=== PATIENT | male | born 1965 | race Caucasian/White ===

== ENCOUNTER 2020-03-07 15:05 | Outpatient (REF) | payer OTHER, SELFPAY | END 2020-03-07 15:06 | disposition home or self-care (01) | LOC: HO.LAB 15:05 | PROVIDERS: Visit Provider Internal Medicine | DX: Z20.828 Contact with and (suspected) exposure to other viral communicable diseases (principal) | CPT/HCPCS: C9803; U0003 ==

== ENCOUNTER 2020-11-23 07:10 | Outpatient (REF) | payer OTHER, SELFPAY ==
[2020-11-23 11:50] LABS: Appearance Urine CLEAR; Color Urine YELLOW; Glucose Urine UA NEG (NEG); Leukocyte Esterase Urine NEG (NEG); Nitrite Urine NEG (NEG); PH 5.5 (5.0-8.0); Specific Gravity - Urine >= 1.030 (1.005-1.025); Urine Blood NEG (NEG); Urine Ketones NEG (NEG); Urine Protein NEG (NEG-TRACE)
[2020-11-23 12:12] LABS: TSH reflex Free T4 1.45 uIU/mL (0.32-4.0)
[2020-11-23 12:32] LABS: Alanine Aminotransferase 56 U/L (0-40); Albumin Level 4.5 g/dL (3.5-5.0); Alkaline Phosphatase 46 U/L (39-117); Anion Gap 11 (12-20); Aspartate Amino Transferase 26 U/L (5-37); Bilirubin Total 0.9 mg/dL (0.0-1.0); Blood Urea Nitrogen 15 mg/dL (9-16); Calcium 9.6 mg/dL (8.4-10.2); Carbon Dioxide 28 mmol/L (22-29); Chloride 104 mmol/L (96-108); Cholesterol 190 mg/dL; Estimated Glomerular Filt Rate 59; Glucose Fasting 98 mg/dL (60-99); HDL Cholesterol 43 mg/dL; LDL Cholesterol Calculated 109 mg/dl; Potassium 4.4 mmol/L (3.3-5.1); Sodium 139 mmol/L (135-145); Total Protein 7.2 g/dL (6.5-8.0); Triglycerides 192 mg/dL
[2020-11-23 13:04] LABS: Prostate Specific Antigen Scr 1.32 ng/mL (<0.05-4.0)
== END 2020-11-23 07:11 | disposition home or self-care (01) ==
LOC: HO.WFDLDS 07:10
PROVIDERS: PCP Internal Medicine; Visit Provider Family Medicine
DX: Z00.00 Encounter for general adult medical examination without abnormal findings (principal); Z12.5 Encounter for screening for malignant neoplasm of prostate
CPT/HCPCS: 36415; 80053; 80061; 81003; 84153; 84443

== ENCOUNTER 2022-02-19 07:07 | Outpatient (REF) | payer OTHER, SELFPAY ==
[2022-02-19 07:45] LABS: Appearance Urine Clear; Color Urine Yellow; Glucose Urine UA Negative (Negative); Leukocyte Esterase Urine Negative (Negative); Nitrite Urine Negative (Negative); Specific Gravity - Urine 1.025 (1.005-1.025); Urine Blood Negative (Negative); Urine Ketones Trace mg/dL (Negative); Urine Protein Negative (Neg-Trace)
[2022-02-19 08:01] LABS: Creatinine Urine 211.84 mg/dL; Microalbum/Creatinine Ratio Ur 5.1 ug/mg cr
[2022-02-19 08:30] LABS: Alanine Aminotransferase 49 U/L (0-40); Albumin Level 4.2 g/dL (3.5-5.0); Alkaline Phosphatase 52 U/L (39-117); Anion Gap 12 (12-20); Aspartate Amino Transferase 25 U/L (5-37); Bilirubin Total 0.4 mg/dL (0.0-1.0); Blood Urea Nitrogen 17 mg/dL (9-16); Calcium 9.1 mg/dL (8.4-10.2); Carbon Dioxide 26 mmol/L (22-29); Chloride 106 mmol/L (96-108); Cholesterol 218 mg/dL; Estimated Glomerular Filt Rate > 60; Glucose Fasting 104 mg/dL (60-99); HDL Cholesterol 29 mg/dL; Potassium 4.8 mmol/L (3.3-5.1); Prostate Specific Antigen Scr 1.42 ng/mL (<0.05-4.0); Sodium 139 mmol/L (135-145); TSH reflex Free T4 1.57 uIU/mL (0.32-4.0); Total Protein 6.8 g/dL (6.5-8.0); Triglycerides 412 mg/dL
== END 2022-02-19 07:08 | disposition home or self-care (01) ==
LOC: HO.LAB 07:07
PROVIDERS: PCP Internal Medicine; Visit Provider Family Medicine
DX: Z00.00 Encounter for general adult medical examination without abnormal findings (principal); Z12.5 Encounter for screening for malignant neoplasm of prostate; I10 Essential (primary) hypertension
CPT/HCPCS: 36415; 80053; 80061; 81003; 82043; 84153; 84443

== ENCOUNTER → 2022-05-20 08:09 | Outpatient (BNVA) | payer OTHER, SELFPAY | PROVIDERS: PCP Internal Medicine; Visit Provider Nurse Practitioner Family | DX: Z13.89 Encounter for screening for other disorder (principal) ==

== ENCOUNTER 2022-05-23 08:59 | Outpatient (REF) | payer OTHER, SELFPAY ==
[2022-05-23 12:04] LABS: Alanine Aminotransferase 52 U/L (0-40); Albumin Level 4.4 g/dL (3.5-5.0); Alkaline Phosphatase 42 U/L (39-117); Anion Gap 12 (12-20); Aspartate Amino Transferase 27 U/L (5-37); Bilirubin Total 0.6 mg/dL (0.0-1.0); Blood Urea Nitrogen 20 mg/dL (9-16); Calcium 9.7 mg/dL (8.4-10.2); Carbon Dioxide 27 mmol/L (22-29); Chloride 105 mmol/L (96-108); Cholesterol 188 mg/dL; Estimated Glomerular Filt Rate 58; Glucose Random 93 mg/dL (60-115); HDL Cholesterol 44 mg/dL; LDL Cholesterol Calculated 121 mg/dl; Potassium 5.1 mmol/L (3.3-5.1); Sodium 139 mmol/L (135-145); Total Protein 6.9 g/dL (6.5-8.0); Triglycerides 116 mg/dL
[2022-05-25 18:43] LABS: LDL Cholesterol Direct 120 mg/dL (<100)
== END 2022-05-23 09:00 | disposition home or self-care (01) ==
LOC: HO.WFDLDS 08:59
PROVIDERS: Visit Provider Family Medicine
DX: Z00.00 Encounter for general adult medical examination without abnormal findings (principal); E78.5 Hyperlipidemia, unspecified
CPT/HCPCS: 36415; 80053; 80061; 83721

== ENCOUNTER → 2022-06-11 08:58 | Outpatient (REF) | payer OTHER, SELFPAY | LOC: HO.SL 08:58 | PROVIDERS: PCP Family Medicine; Visit Provider Nurse Practitioner Family | DX: R06.83 Snoring (principal); G47.30 Sleep apnea, unspecified | CPT/HCPCS: 95806 ==

== ENCOUNTER 2022-07-23 07:59 | Outpatient (REF) | payer OTHER, SELFPAY ==
--- NOTE | ~2022-07-23 | US_ITS ---
EXAMINATION: US ABDOMEN LIMITED WITH LIVER ELASTOGRAPHY CLINICAL INFORMATION: Elevation of liver transaminase levels. COMPARISON: None available. TECHNIQUE: Real-time imaging of the abdominal viscera. Noninvasive ultrasound liver fibrosis assessment is performed using Saad ElastPQ point quantification shear wave elastography (2D-SWE) with a C5-2 MHz transducer. Multiple elastography samples are obtained. FINDINGS: PANCREAS: Normal. The visualized pancreatic head and body are normal in appearance. The remainder of the pancreas is obscured from visualization by the overlying bowel gas. LIVER: The liver demonstrates normal size, contour and diffuse increased echogenicity. No focal lesion or intrahepatic biliary duct dilatation. The right lobe measures 17.2 cm in length. The left lobe measures 10.9 cm in length. Portal flow is hepatopedal. Shear wave liver elastography median stiffness is 1.40 m/s (reference: normal median stiffness is 1.3 m/s or less). IQR/median stiffness to assess sampling precision is 0.06 (reference: good quality data set is IQR/median stiffness of 0.15 or less). GALLBLADDER: Gallbladder wall thickness is 0.2 cm. The gallbladder is physiologically distended without evidence of stones, sludge, polyps, wall thickening or pericholecystic fluid. COMMON BILE DUCT: Normal in caliber measuring 0.3 cm in diameter. RIGHT KIDNEY: Normal. No hydronephrosis. No renal calculi or focal parenchymal lesions. The kidney measures 11.6 cm in maximum dimension. FREE FLUID: None. US/US abdomen golden w elastography IMPRESSION: 1. Mild hepatic steatosis without focal lesion. 2. Liver elastography: Median liver stiffness measures 1.40 m/s corresponding to cACLD (ruled out). REFERENCE: Society of Radiologists in Ultrasound Liver Stiffness Thresholds (2020): LIVER STIFFNESS THRESHOLDS: *Liver Stiffness equal or less than 1.3 m/s: High probability of being normal. *Liver Stiffness less than 1.7 m/s: In the absence of other known clinical signs, rules out compensated advanced chronic liver disease. *Liver Stiffness 1.7-2.1 m/s: Suggestive of compensated advanced chronic liver disease but need further test for confirmation. *Liver Stiffness over 2.1 m/s: Rules in compensated advanced chronic liver disease. *Liver Stiffness over 2.4 m/s: Suggestive of clinically significant portal hypertension. QUALITY OF DATA SET: *IQR/Median value equal or less than 0.15 implies a quality data set. *IQR/Median value over 0.15 implies a poor quality data set. SIGNIFICANT CHANGE FROM PRIOR EXAM: Significant change if liver stiffness measurement is 10% or greater from prior exam. OTHER CONSIDERATIONS: The stage of liver fibrosis may be overestimated in the setting of acute hepatitis, liver inflammation, elevated liver function tests, hepatic vascular congestion, obstructive cholestasis, non-fasting state, and infiltrative diseases such as amyloidosis and lymphoma. In some patients with NAFLD, the liver stiffness thresholds for compensated advanced chronic liver disease may be lower. In causes other than viral hepatitis and NAFLD, liver stiffness thresholds are not well established.
== END 2022-07-23 08:00 | disposition home or self-care (01) ==
LOC: HO.US 07:59
PROVIDERS: PCP Internal Medicine; Visit Provider Family Medicine
DX: R74.01 Elevation of levels of liver transaminase levels (principal)
CPT/HCPCS: 76705; 76981

== ENCOUNTER 2022-11-11 14:36 | Outpatient (AMB) | payer OTHER, SELFPAY ==
--- NOTE | 2022-11-11 14:42 | MHC.PC.OV ---
Vital Signs 11/11/22 14:43 Height 6 ft 1 in Weight 209 lb BMI 27.6 BP 118/64 Blood Pressure Location Rt brachial Position Sitting Respiration 12 Pulse 70 Pulse Source Pulse Oximeter Temp 97.9 F Temp Source Temporal Artery Scan Pulse Oximetry (%) 99 Oxygen Delivery Method Room Air Intake Visit Reasons: sore throat, cough, chills Intake Note: Patient states that symptoms started over a week ago. Patient states that thursday he was having a hard time getting out of bed and still has a persistent cough. 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 Rapid strep negative today. He reports symptoms x1 week. [facility] Medical History No pertinent past medical history Surgical History No pertinent past surgical history Family History Father Paranoia Depression Parkinson disease Mother Alzheimers disease Sister In good health Social History Housing: House Patient Tobacco Use Status: Never used Tobacco e-Cigarette/Vaping Use: Never Used service: No Current occupational status: employed Current occupation: Banker Current occupational exposures/hazards: No Cognitive needs: No Hearing needs: No Vision needs: No Questionnaire CANDICE-7 AMB Questionnaire CANDICE-7 Date CANDICE - 7 assessed: 02/21/22 Source: Developed by Drs. Lucho Steel, Geetha Elizalde, Keon Johnson and colleagues, with an educational sravan from [employer]. Review of Systems Const Reports chills, Denies fatigue, Denies headache(s) and Denies weakness ENT Denies dizziness, Denies headache(s) and Reports sore throat Card Denies chest pain, Denies lightheadedness, Denies dyspnea and Denies other (Palpitations) Resp Reports cough, Denies dyspnea and Denies wheezing Musc Denies numbness and Denies tingling Neuro Denies dizziness, Denies headache(s), Denies numbness, Denies tingling, Denies paresthesias and Denies weakness Psych Denies anxiety and Denies depression Endo Denies fatigue Aller/Immun Denies wheezing Physical exam (Primary Care) Vital Signs: Last Vital Signs Temp 97.9 F 11/11/22 14:43 Pulse 70 11/11/22 14:43 Resp 12 11/11/22 14:43 BP 118/64 11/11/22 14:43 Pulse Ox 99 11/11/22 14:43 Oxygen Delivery Method Room Air 11/11/22 14:43 BMI result Body Mass Index 27.6 Tobacco/Smoking Status: Tobacco use Status Tobacco use date assessed 06/27/22 11/11/22 14:51 Patient Tobacco Use Status Never used Tobacco 11/11/22 14:51 e-Cigarette/Vaping Use Never Used 11/11/22 14:51 Const General: no acute distress and well developed Nutritional Appearance: well nourished Orientation/consciousness: patient oriented x3 HENMT Head: Yes normocephalic and Yes atraumatic Eyes General: appearance normal, both eyes and all related structures Pupils: Equal, round and reactive pupils present EOM: EOMs intact bilaterally Resp Other: Mildly coarse breath sounds Effort & Inspection: normal respiratory effort Auscultation: clear to auscultation bilaterally Cardio Rate: regular rate Rhythm: regular rhythm Heart sounds: S1 normal heart sound present, S2 normal heart sound present, no gallops, no murmurs and no rubs Neuro General: patient oriented x3 and gait normal Cranial nerves: Yes Equal, round and reactive pupils present Psych Affect: normal affect Results AMB Rapid Strep AMB Rapid Strep Negative Last Edit by Samantha Martínez CMA on 11/11/22 15:12 Results Reviewed Results Reviewed: Laboratory Last Values Strep Scn [facility] Negative 11/11/22 14:53 Assessment and Plan Assessment & Plan (1) Sore throat: Code(s): J02.9 - Acute pharyngitis, unspecified Plan: Negative for strep Likely secondary to a viral illness-see below (2) Viral illness: Code(s): B34.9 - Viral infection, unspecified Plan: Viral illness There is no antibiotic medication for viruses. They must run their course. Most average 5-7 days but 7-10 days is not uncommon and up to 14 days is still possible. A cough is often the last symptom to resolve and this can last for weeks in some cases. Rest Hydrate well - Drink plenty of fluids. Especially water. Tylenol or ibuprofen for muscle aches, headache, fever/discomfort Can use [id number] medications for cough such as Delsym or DayQuil. Prescription cough medicines have been shown to be no better. Checking nasal swab for COVID/flu/RSV Orders: Orders SARS-CoV2/FLU/RSV Today J02.9 - Acute pharyngitis, unspecified, Z20.822 - Contact with and (suspected) exposure to COVID-19 AMB Rapid Strep Screen Today J02.9 - Acute pharyngitis, unspecified Coding Level of Care Code Est Pt Level 3 (38852) Diagnoses Sore throat J02.9 Viral illness B34.9
[2022-11-11 14:43] VITALS: BP 118/64; PULSE 70; RESP 12; TEMP 36.6; O2SAT 99; BMI 27.6
== END 2022-11-11 15:36 | disposition home or self-care (01) ==
PROVIDERS: PCP Family Medicine; Visit Provider Family Medicine
DX: J02.9 Acute pharyngitis, unspecified (principal); B34.9 Viral infection, unspecified
CPT/HCPCS: 87880; 99213

== ENCOUNTER 2022-11-11 15:25 | Outpatient (REF) | payer OTHER, SELFPAY | END 2022-11-11 15:26 | disposition home or self-care (01) | LOC: HO.LAB 15:25 | PROVIDERS: Visit Provider Family Medicine | DX: Z13.89 Encounter for screening for other disorder (principal) ==

== ENCOUNTER 2022-11-19 14:11 | Outpatient (REF) | payer OTHER, SELFPAY ==
[2022-11-19 14:56] LABS: Influenza A PCR NEGATIVE (Negative); Influenza B PCR NEGATIVE (Negative); Resp Syncy Virus RNA Qual PCR NEGATIVE (Negative); SARS COV2 PCR INHOUSE NEGATIVE (Negative)
== END 2022-11-19 14:12 | disposition home or self-care (01) ==
LOC: HO.LNP 14:11
PROVIDERS: Visit Provider Family Medicine
DX: Z20.822 Contact with and (suspected) exposure to COVID-19 (principal); J02.9 Acute pharyngitis, unspecified
CPT/HCPCS: 0241U

== ENCOUNTER 2022-11-24 07:05 | Outpatient (REF) | payer OTHER, SELFPAY ==
[2022-11-24 07:33] LABS: Alanine Aminotransferase 79 U/L (0-40); Albumin Level 4.1 g/dL (3.5-5.0); Alkaline Phosphatase 40 U/L (39-117); Anion Gap 11 (12-20); Aspartate Amino Transferase 32 U/L (5-37); Bilirubin Total 0.4 mg/dL (0.0-1.0); Blood Urea Nitrogen 19 mg/dL (9-16); Calcium 9.5 mg/dL (8.4-10.2); Carbon Dioxide 26 mmol/L (22-29); Chloride 108 mmol/L (96-108); Cholesterol 185 mg/dL (<200); Estimated Glomerular Filt Rate > 60; Glucose Fasting 108 mg/dL (60-99); HDL Cholesterol 40 mg/dL (>40); LDL Cholesterol Calculated 97 mg/dL (<100); Potassium 4.4 mmol/L (3.3-5.1); Sodium 141 mmol/L (135-145); Triglycerides 242 mg/dL (<150)
== END 2022-11-24 07:06 | disposition home or self-care (01) ==
LOC: HO.LAB 07:05
PROVIDERS: PCP Family Medicine; Visit Provider Family Medicine
DX: Z00.00 Encounter for general adult medical examination without abnormal findings (principal); R74.01 Elevation of levels of liver transaminase levels; E78.5 Hyperlipidemia, unspecified
CPT/HCPCS: 36415; 80053; 80061

== ENCOUNTER 2022-11-25 08:30 | Outpatient (AMB) | payer OTHER, SELFPAY ==
--- NOTE | 2022-11-25 08:34 | MHC.PC.OV ---
Vital Signs 11/25/22 08:41 Height 6 ft 1 in Weight 212 lb 4 oz BMI 28.0 BP 122/60 Blood Pressure Location Rt brachial Position Sitting Respiration 13 Pulse 88 Pulse Source Pulse Oximeter Temp 97.9 F Temp Source Temporal Artery Scan Pulse Oximetry (%) 97 Oxygen Delivery Method Room Air Intake Visit Reasons: 3 month f/u Intake Note: Patient reports he is still experiencing a cough since being sick recently. Patient states other than the cough, he is feeling much better. Patient reports he was able to get his labs drawn 11/24/22. 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 He reports an ongoing cough. Labs were drawn 11/24/22. Reviewed labs with pt. Elevated fasting glucose of 108 and last A1c 08/22/22 5.2%. Elevated ALT of 79. Triglycerides 242. TC 185. LDL 97. HDL 40. He is on simvastatin 40mg qpm. [facility] Medical History No pertinent past medical history Surgical History No pertinent past surgical history Family History Father Paranoia Depression Parkinson disease Mother Alzheimers disease Sister In good health Social History Housing: House Patient Tobacco Use Status: Never used Tobacco e-Cigarette/Vaping Use: Never Used service: No Current occupational status: employed Current occupation: Banker Current occupational exposures/hazards: No Cognitive needs: No Hearing needs: No Vision needs: No Questionnaire CANDICE-7 AMB Questionnaire CANDICE-7 Date CANDICE - 7 assessed: 02/21/22 Source: Developed by Drs. Lucho Steel, Geetha Elizalde, Keon Johnson and colleagues, with an educational srvaan from [employer]. Review of Systems Const Denies chills, Denies fatigue, Denies fever(s), Denies headache(s) and Denies weakness ENT Denies dizziness and Denies headache(s) Card Denies dyspnea Resp Reports cough, Denies dyspnea and Denies wheezing Musc Denies numbness and Denies tingling Neuro Denies dizziness, Denies headache(s), Denies numbness, Denies tingling and Denies weakness Psych Denies anxiety and Denies depression Endo Denies fatigue Aller/Immun Denies wheezing Physical exam (Primary Care) Vital Signs: Last Vital Signs Temp 97.9 F 11/25/22 08:41 Pulse 88 11/25/22 08:41 Resp 13 11/25/22 08:41 BP 122/60 11/25/22 08:41 Pulse Ox 97 11/25/22 08:41 Oxygen Delivery Method Room Air 11/25/22 08:41 BMI result Body Mass Index 28.0 Tobacco/Smoking Status: Tobacco use Status Tobacco use date assessed 06/27/22 11/25/22 08:35 Patient Tobacco Use Status Never used Tobacco 11/25/22 08:35 e-Cigarette/Vaping Use Never Used 11/25/22 08:35 Const General: well developed; No acute distress Nutritional Appearance: well nourished Orientation/consciousness: patient oriented x3 HENMT Head: Yes normocephalic and Yes atraumatic Eyes General: appearance normal, both eyes and all related structures Pupils: Equal, round and reactive pupils present EOM: EOMs intact bilaterally Resp Other: Coarse breath sounds at the bases Effort & Inspection: normal respiratory effort Auscultation: clear to auscultation bilaterally Cardio Rate: regular rate Rhythm: regular rhythm Heart sounds: S1 normal heart sound present, S2 normal heart sound present, no gallops, no murmurs and no rubs Neuro General: patient oriented x3 and gait normal Cranial nerves: Yes Equal, round and reactive pupils present Psych Affect: normal affect Assessment and Plan Assessment & Plan (1) Hyperlipidemia: Code(s): E78.5 - Hyperlipidemia, unspecified Plan: Mixed hyperlipidemia Triglycerides were over 400 and he started fenofibrate. This had brought triglycerides down to 116 but this is back up to 242. TC and LDL are controlled on simvastatin HDL had been low but more recently is around 40. Continue fenofibrate and simvastatin (2) Hypertension: Code(s): I10 - Essential (primary) hypertension Plan: Blood pressure is controlled. Goal is less than 140/90 Continue lisinopril (3) Elevated ALT measurement: Code(s): R74.01 - Elevation of levels of liver transaminase levels Plan: ALT was mildly elevated at 52 Liver ultrasound showed hepatic steatosis Encouraged lifestyle changes including weight loss. He had lost about 10 lb but gained 3 back. ALT has climbed to 79. Continue to work at weight loss (4) Cough: Code(s): R05.9 - Cough, unspecified Plan: Ongoing cough which is improving. Likely a pulse viral tussive syndrome though possible allergic or irritant cause or possible lingering bronchitis though this is less likely. Lastly, possible lisinopril cough is though description of the cough and the fact that is improving make this unlikely. He will let me know if this does not continue to improve. Can try little Zyrtec or Benadryl Orders: Orders Comprehensive [place]. Panel Fast Today Z00.00 - Encounter for general adult medical examination without abnormal findings Lipid Panel Today Z00.00 - Encounter for general adult medical examination without abnormal findings Microalbumin, Random (w Creat) Today I10 - Essential (primary) hypertension TSH reflex Free T4 Today Z00.00 - Encounter for general adult medical examination without abnormal findings Prostate Specific Antigen Scr Today Z12.5 - Encounter for screening for malignant neoplasm of prostate UA and rflx microscopic Today Z00.00 - Encounter for general adult medical examination without abnormal findings Coding Level of Care Code Est Pt Level 4 (58632) Diagnoses Hyperlipidemia E78.5 Hypertension I10 Elevated ALT measurement R74.01 Cough R05.9
[2022-11-25 08:41] VITALS: BP 122/60; PULSE 88; RESP 13; TEMP 36.6; O2SAT 97; BMI 28.0
== END 2022-11-25 09:03 | disposition home or self-care (01) ==
PROVIDERS: PCP Family Medicine; Visit Provider Family Medicine
DX: E78.5 Hyperlipidemia, unspecified (principal); I10 Essential (primary) hypertension; R74.01 Elevation of levels of liver transaminase levels; R05.9 Cough, unspecified
CPT/HCPCS: 99214

== ENCOUNTER 2023-08-12 06:54 | Outpatient (REF) | payer BC, OTHER, SELFPAY ==
[2023-08-12 08:13] LABS: Alanine Aminotransferase 71 U/L (0-40); Albumin Level 4.3 g/dL (3.5-5.0); Alkaline Phosphatase 39 U/L (39-117); Anion Gap 10 (12-20); Aspartate Amino Transferase 35 U/L (5-37); Bilirubin Total 0.5 mg/dL (0.0-1.0); Blood Urea Nitrogen 21 mg/dL (9-16); Calcium 9.4 mg/dL (8.4-10.2); Carbon Dioxide 26 mmol/L (22-29); Chloride 107 mmol/L (96-108); Cholesterol 193 mg/dL (<200); Estimated Glomerular Filt Rate 56; Glucose Fasting 98 mg/dL (60-99); HDL Cholesterol 43 mg/dL (>40); LDL Cholesterol Calculated 119 mg/dL (<100); Potassium 4.3 mmol/L (3.3-5.1); Sodium 139 mmol/L (135-145); Total Protein 7.1 g/dL (6.5-8.0); Triglycerides 159 mg/dL (<150)
[2023-08-12 08:20] LABS: Appearance Urine Clear; Color Urine Yellow; Glucose Urine UA Negative (Negative); Leukocyte Esterase Urine Negative (Negative); Nitrite Urine Negative (Negative); PH 5.5 (5.0-9.0); Urine Blood Negative (Negative); Urine Ketones Negative (Negative); Urine Protein Negative (Neg-Trace)
[2023-08-12 08:22] LABS: Prostate Specific Antigen Scr 1.62 ng/mL (<0.05-4.0)
[2023-08-12 08:32] LABS: TSH reflex Free T4 1.65 uIU/mL (0.32-4.0)
[2023-08-12 08:57] LABS: Creatinine Urine 248.94 mg/dL; Microalbum/Creatinine Ratio Ur 5.6 ug/mg cr (<30)
== END 2023-08-12 06:55 | disposition home or self-care (01) ==
LOC: HO.LAB 06:54
PROVIDERS: PCP Family Medicine; Visit Provider Family Medicine
DX: Z00.00 Encounter for general adult medical examination without abnormal findings (principal); Z12.5 Encounter for screening for malignant neoplasm of prostate; I10 Essential (primary) hypertension
CPT/HCPCS: 36415; 80053; 80061; 81003; 82043; 82570; 84153; 84443

== ENCOUNTER 2023-08-13 08:20 | Outpatient (AMB) | payer BC, SELFPAY ==
[2023-08-13 08:30] VITALS: BP 122/60; PULSE 80; RESP 14; TEMP 36.6; O2SAT 97; BMI 28.7
--- NOTE | 2023-08-13 08:30 | A.OFFPC_ITS ---
Vital Signs 08/13/23 08:30 Height 6 ft 1 in Weight 217 lb 6 oz BMI 28.7 BP 122/60 Blood Pressure Location Rt brachial Position Sitting Respiration 14 Pulse 80 Pulse Source Pulse Oximeter Temp 98 F Temp Source Temporal Artery Scan Pulse Oximetry (%) 97 Oxygen Delivery Method Room Air Intake Visit Reasons: CPE, labs, health maintenance Pediatric Ophthalmologist Required: No Accompanied by: Self / Same As Patient Allergies No Known Allergies [No Known Allergies*] Allergy (Verified 08/13/23 08:35) Medication List - Last Reconciled 08/13/23 by Bharat Hermosillo MD fenofibrate nanocrystallized 145 mg PO DAILY 90 days lisinopril 20 mg PO DAILY 90 days simvastatin 40 mg PO QPM Tobacco use date assessed: 08/13/23 Dental Screening Dental Screen Date: 08/13/23 Did you have a dental visit in the last 12 months?: Yes Did you have a dental problem in the last 6 months where you did not have access to dental care?: No Was dental information given to patient?: Patient has dentist HPI CPE, labs, health maintenance HPI Details 58 y/o male presents for a CPE with f/u labs and health maintenance. Labs were drawn 08/12/23. Reviewed labs with pt. Elevated ALT of 71. Triglycerides improved from 242 to 159. LDL 119. HDL 43. He is on simvastatin 40mg. Blood pressure today 122/60. He is on lisinopril 20mg daily. [facility] Medical History No pertinent past medical history Surgical History History of tooth extraction No pertinent past surgical history Family History Father Paranoia Depression Parkinson disease Mother Alzheimers disease Sister In good health Social History Housing: House Patient Tobacco Use Status: Never used Tobacco e-Cigarette/Vaping Use: Never Used service: No Current occupational status: employed Current occupation: Banker Current occupational exposures/hazards: No Cognitive needs: No Hearing needs: No Vision needs: No Questionnaire PHQ-9 Over the last 2 weeks, how often have you been bothered by any of the following problems? 1. Little interest or pleasure in doing things: not at all 2. Feeling down, depressed, or hopeless: not at all 3. Trouble falling or staying asleep, or sleeping too much: not at all 4. Feeling tired or having little energy: not at all 5. Poor appetite or overeating: not at all 6. Feeling bad about yourself - or that you are a failure or have let yourself or your family down: not at all 7. Trouble concentrating on things, such as reading the newspaper or watching television: not at all 8. Moving or speaking so slowly that other people could have noticed. Or the opposite - being so fidgety or restless that you have been moving around a lot more than usual: not at all 9. Thoughts that you would be better off or of hurting yourself in some way: not at all Total score: 0 Depression Screening Interpretation: Negative Depression Screening Done: Yes 72134 - PHQ-9 Billing: Yes Source: Developed by Drs. Lucho Steel, Geetha Elizalde, Keon Johnson and colleagues, with an educational sravan from [employer]. Thrive Questionnaire Date Thrive assessed: 08/13/23 I am a: Patient What is your living situation today?: I have a steady place to live Within the past 12 months, did the food you bought not last and you didn't have the money to get more?: Never true Within the past 12 months, did you worry whether your food would run out before you got money to buy more?: Never true Do you have trouble paying for medicines?: No Do you have trouble getting transportation to medical appointments?: No Do you have trouble paying your heating and electricity bill?: No Do you have trouble taking care of your child, family member or friend?: No Do you have trouble with day-to-day activities such as bathing, preparing meals, shopping, managing finances, etc.?: No Are you currently unemployed and looking for a job?: No Are you interested in more education?: No Please select the resources that you would like help with: None Currently or been in a relationship where the following occur: no concerns reported THRIVE Score: 0 AUDIT C Alcohol Use Questionnaire (AUDIT-C) 1. How often do you have a drink containing alcohol?: Monthly or less 2. How many drinks containing alcohol do you have on a typical day when you are drinking?: 1 or 2 3. How often do you have six or more drinks on one occasion?: Never Total Score: 1 CANDICE-7 AMB Questionnaire CANDICE-7 Date CANDICE - 7 assessed: 08/13/23 Feeling nervous, anxious, or on edge: 0 = Not at all Not being able to stop or control worryin = Not at all Worrying too much about different things: 0 = Not at all Trouble relaxin = Not at all Being so restless that it is hard to sit still: 0 = Not at all Becoming easily annoyed or irritable: 0 = Not at all Feeling afraid as if something awful might happen: 0 = Not at all Total CANDICE-7 score (0-4 normal; 5-9 mild; 10-14 moderate; 15-21 severe): 0 Source: Developed by Drs. Lucho Steel, Geetha Elizalde, Keon Johnson and colleagues, with an educational sravan from [employer]. CANDICE-7 Assessment Billing CANDICE-7 Assessment Tool: CANDICE-7 Assessment 54177 Review of Systems Const Denies chills, Denies fatigue, Denies fever(s), Denies headache(s) and Denies weakness Eyes Denies change in vision ENT Denies dizziness, Denies headache(s), Denies hearing loss, Denies nasal congestion, Denies sinus pain, Denies sinus pressure and Denies sore throat Card Denies chest pain, Denies lightheadedness, Denies dyspnea and Denies other (palpitations) Resp Denies cough, Denies dyspnea and Denies wheezing GI Denies abdominal pain, Denies melena, Denies hematochezia, Denies change in bowel habits, Denies dyspepsia and Denies nausea Denies hematuria and Denies dysuria Musc Denies abnormal gait, Denies myalgias, Denies arthralgias, Denies numbness and Denies tingling Skin/Breast Denies rash, Denies unusual bruising and Denies wounds Neuro Denies abnormal gait, Denies dizziness, Denies headache(s), Denies memory loss, Denies numbness, Denies Sensory deficit (Neuro), Denies tingling and Denies weakness Psych Denies anxiety, Denies depression and Denies memory loss Endo Denies cold intolerance, Denies fatigue, Denies heat intolerance, Denies polydipsia and Denies polyuria Norrsi/Lymph Denies easy bleeding and Denies easy bruising Aller/Immun Denies wheezing Physical exam (Primary Care) Vital Signs: Last Vital Signs Temp 98 F 08/13/23 08:30 Pulse 80 08/13/23 08:30 Resp 14 08/13/23 08:30 BP 122/60 08/13/23 08:30 Pulse Ox 97 08/13/23 08:30 Oxygen Delivery Method Room Air 08/13/23 08:30 BMI result Body Mass Index 28.7 Tobacco/Smoking Status: Tobacco use Status Tobacco use date assessed 08/13/23 08/13/23 08:39 Patient Tobacco Use Status Never used Tobacco 08/13/23 08:39 e-Cigarette/Vaping Use Never Used 08/13/23 08:39 PHQ-9: PHQ-9 Score PHQ-9: Total score 0 08/13/23 08:39 Depression Screening Interpretation: Negative Thrive Assessment: Date of Thrive Assessment Date Thrive assessed 08/13/23 08/13/23 08:39 Currently or been in a relationship where the following occur: no concerns reported Const General: no acute distress, well developed, alert and awake Nutritional Appearance: well nourished Orientation/consciousness: patient oriented x3 HENMT Head: Yes normocephalic and Yes atraumatic Ears: hearing grossly normal bilaterally and TM's normal bilaterally General nose exam: Normal external nose present and Normal nares present Mouth: Normal oral and palatal mucosa present and moist mucous membranes Teeth and gingiva: dentition normal Throat: Yes posterior oropharynx normal Eyes General: appearance normal, both eyes and all related structures Pupils: Equal, round and reactive pupils present and Pupil accommodation reflex normal EOM: EOMs intact bilaterally Neck Neck: Yes normal visual inspection, Yes no lymphadenopathy and Yes trachea midline Thyroid: Thyroid normal Carotids: no bruits Lymphatic: no lymphadenopathy noted Chest Chest palpation & inspection: normal inspection of the chest Resp Effort & Inspection: normal respiratory effort Auscultation: clear to auscultation bilaterally Cardio Rate: regular rate Rhythm: regular rhythm Heart sounds: S1 normal heart sound present, S2 normal heart sound present, no gallops, no murmurs and no rubs Bruits: no abdominal aortic bruits and no carotid bruits GI Palpation (GI): No Abdominal aortic bruit present, Soft to palpation, nontender, No hepatosplenomegaly present and No Rebound tenderness present Auscultation: normal bowel sounds General: Yes no CVA tenderness Back/Spine/Pelvis Back: no CVA tenderness Cervical Spine: cervical ROM normal and No Cervical spine tenderness Thoracic/Lumbar Spine: thoraco-lumbar ROM normal, No pain with thoraco-lumbar ROM, No thoracic spinal tenderness and No lumbar spinal tenderness Skin Lesions: no lesions Rashes: no rashes Trauma: no lacerations or abrasions Wounds: no wounds Nails: normal Neuro General: patient oriented x3 Cranial nerves: Yes Equal, round and reactive pupils present Cognition (Neuro): normal cognition Gait exam (Neuro): Normal gait present Motor exam (neuro): 5/5 motor strength present throughout Sensory Exam: No Sensory deficit (Neuro) Deep tendon reflexes (DTR's): Right patellar reflex intensity grade: 2+ and Left patellar reflex intensity grade: 2+ Extrem General: Yes normal to inspection and No edema Psych Appearance: grossly normal Affect: normal affect Attitude: cooperative Thought process: Normal thought process present Assessment and Plan Assessment & Plan (1) Adult general medical exam: Code(s): Z00.00 - Encounter for general adult medical examination without abnormal findings Plan: 58-year-old?male?presents?for?complete?physical?exam Encouraged?healthy?diet?with?active?lifestyle?and?plenty?of?exercise (2) Hyperlipidemia: Code(s): E78.5 - Hyperlipidemia, unspecified Plan: History?of?hypertriglyceridemia?and?hypercholesterolemia Triglycerides?fairly?well?controlled?on?fenofibrate. LDL?cholesterol?mildly?above?goal?of?less?than?100 He?will?continue ?current?medication?regimen?and?I?recommended?diet?lower?in?saturated?fats?and?c holesterol?and?weight?loss (3) Hypertension: Code(s): I10 - Essential (primary) hypertension Plan: Blood?pressure?is?well?controlled?on?lisinopril.??Goal?is?less?than?140/90 Continue?current?medication?for?now .??Patient?would?like?to?work?on?lifestyle?changes?to?wean?off?or?stop?medicatio n?in?the?future. Will?monitor (4) Screening for colon cancer: Code(s): Z12.11 - Encounter for screening for malignant neoplasm of colon Plan: Patient?says?he?had?a?colonoscopy?9?years?ago?and?was?told?to?follow- up?in?10?years. Up-to-date.??Will?readdress?next?year (5) Screening for prostate cancer: Code(s): Z12.5 - Encounter for screening for malignant neoplasm of prostate Plan: PSA?within?normal?range Will?continue?annual?screening (6) Elevated ALT measurement: Code(s): R74.01 - Elevation of levels of liver transaminase levels Plan: Ultrasound?last?year?showed?mild?fatty?liver?disorder Encouraged?weight?loss Coding Level of Care Code Est Pt Level 3 (18998) Est Pt Prev Care 40-64y(51961) Diagnoses Adult general medical exam Z00.00 Hyperlipidemia E78.5 Hypertension I10 Screening for colon cancer Z12.11 Screening for prostate cancer Z12.5 Elevated ALT measurement R74.01 Additional Codes CANDICE-7 Assessment Billing - CANDICE-7 Assessment Tool: CANDICE-7 Assessment 61425 ([id number])
== END 2023-08-13 09:07 | disposition home or self-care (01) ==
PROVIDERS: PCP Family Medicine; Visit Provider Family Medicine
DX: Z00.00 Encounter for general adult medical examination without abnormal findings (principal); E78.5 Hyperlipidemia, unspecified; I10 Essential (primary) hypertension; Z12.11 Encounter for screening for malignant neoplasm of colon; Z12.5 Encounter for screening for malignant neoplasm of prostate; R74.01 Elevation of levels of liver transaminase levels
CPT/HCPCS: 99396

== ENCOUNTER → 2023-12-09 11:59 | Outpatient (BNVA) | payer BC, SELFPAY | PROVIDERS: PCP Family Medicine; Visit Provider Family Medicine ==

== ENCOUNTER 2024-06-14 11:43 | Outpatient (AMB) | payer BC, SELFPAY ==
--- NOTE | 2024-06-14 12:08 | A.OFFPC_ITS ---
Vital Signs 06/14/24 12:11 Height 6 ft 1 in Weight 219 lb 2 oz BMI 28.9 BP 120/62 Blood Pressure Location Lt brachial Position Sitting Respiration 10 L Pulse 57 Pulse Source Pulse Oximeter Temp 97.6 F Temp Source Oral Pulse Oximetry (%) 97 Oxygen Delivery Method Room Air Intake Visit Reasons: F/U hypertension & chronic condition Intake Note: patient is scheduled for htn and weight management [employer] Required: No Allergies No Known Allergies [No Known Allergies*] Allergy (Verified 06/14/24 12:10) Medication List - Last Reconciled 06/14/24 by Bharat Hermosillo MD fenofibrate nanocrystallized 145 mg PO DAILY 90 days lisinopril 20 mg PO DAILY 90 days simvastatin 40 mg PO QPM Tobacco use date assessed: 08/13/23 Dental Screening Dental Screen Date: 08/13/23 HPI F/U hypertension & chronic condition HPI Details 58 y/o male presents to f/u HTN, chronic conditions. BP today 120/62, 57p. He is on lisinopril 20mg daily. [facility] Medical History No pertinent past medical history Surgical History History of tooth extraction No pertinent past surgical history Family History Father Paranoia Depression Parkinson disease Mother Alzheimers disease Sister In good health Social History Housing: House Patient Tobacco Use Status: Never used Tobacco e-Cigarette/Vaping Use: Never Used service: No Current occupational status: employed Current occupation: Banker Current occupational exposures/hazards: No Cognitive needs: No Hearing needs: No Vision needs: No Questionnaire Thrive Questionnaire Date Thrive assessed: 08/13/23 CANDICE-7 AMB Questionnaire CANDICE-7 Date CANDICE - 7 assessed: 08/13/23 Source: Developed by Drs. Lucho Steel, Geetha Elizalde, Keon Johnson and colleagues, with an educational sravan from [employer]. Physical exam (Primary Care) Vital Signs: Last Vital Signs Temp 97.6 F 06/14/24 12:11 Pulse 57 06/14/24 12:11 Resp 10 L 06/14/24 12:11 BP 120/62 06/14/24 12:11 Pulse Ox 97 06/14/24 12:11 Oxygen Delivery Method Room Air 06/14/24 12:11 BMI result Body Mass Index 28.9 Tobacco/Smoking Status: Tobacco use Status Tobacco use date assessed 08/13/23 06/14/24 12:16 Patient Tobacco Use Status Never used Tobacco 06/14/24 12:16 e-Cigarette/Vaping Use Never Used 06/14/24 12:16 Thrive Assessment: Date of Thrive Assessment Date Thrive assessed 08/13/23 06/14/24 12:16 Coding Level of Care Code Est Pt Level 4 (91172) Diagnoses Hypertension I10 Overweight (BMI 25.0-29.9) E66.3 Hyperlipidemia E78.5 Screening for colon cancer Z12.11 Screening for prostate cancer Z12.5 Assessment & Plan Assessment & Plan (1) Hypertension: Code(s): I10 - Essential (primary) hypertension Category: Medical Plan: Blood?pressure?is?well?controlled.??Goal?is?less?than?140/90 Continue?current?medication Patient?notes?he?would?like?to?be?able?to?discontinue?medication?at?some?point. Recommend?he?work?at?a?10?lb?weight?loss?between?now?and?his?next?visit.??Also?i ncrease?exercise?and?decrease?salt/sodium?in?diet Can?evaluate?at?next?visit?to?see?if?we?can?decrease?or?stop?medication. (2) Overweight (BMI 25.0-29.9): Code(s): E66.3 - Overweight Category: Medical Plan: As?above,?patient?will?work?on?lifestyle?changes (3) Hyperlipidemia: Code(s): E78.5 - Hyperlipidemia, unspecified Category: Medical Plan: He?is?on?simvastatin?and?fenofibrate Will?check?lipids?prior?to?next?visit?and?review?together (4) Screening for colon cancer: Code(s): Z12.11 - Encounter for screening for malignant neoplasm of colon Category: Medical Plan: Patient?had?a?colonoscopy?10?years?ago.??Was?advised?to?follow-up?in?10?years (5) Screening for prostate cancer: Code(s): Z12.5 - Encounter for screening for malignant neoplasm of prostate Category: Medical Plan Patient?notes?that?he?is?due?for?colonoscopy.??Will?make?a ?referral?to?gastroenterology Orders: Orders Microalbumin, Random (w Creat) Today I10 - Essential (primary) hypertension TSH reflex Free T4 Today Z00.00 - Encounter for general adult medical examination without abnormal findings UA CC w/rflx Micro + Cult Today Z00.00 - Encounter for general adult medical examination without abnormal findings Lipid Panel Today E78.5 - Hyperlipidemia, unspecified, Z00.00 - Encounter for general adult medical examination without abnormal findings Comprehensive [place]. Panel Fast Today I10 - Essential (primary) hypertension, Z00.00 - Encounter for general adult medical examination without abnormal findings Prostate Specific Antigen Scr Today Z12.5 - Encounter for screening for malignant neoplasm of prostate Referrals Gastroenterology Referral Z12.11 - Encounter for screening for malignant neoplasm of colon
[2024-06-14 12:11] VITALS: BP 120/62; PULSE 57; RESP 10; TEMP 36.4; O2SAT 97; BMI 28.9
== END 2024-06-14 12:43 | disposition home or self-care (01) ==
PROVIDERS: PCP Family Medicine; Visit Provider Family Medicine
DX: I10 Essential (primary) hypertension (principal); E66.3 Overweight; E78.5 Hyperlipidemia, unspecified; Z12.11 Encounter for screening for malignant neoplasm of colon; Z12.5 Encounter for screening for malignant neoplasm of prostate

== ENCOUNTER → 2024-06-14 11:43 | Outpatient (BNVA) | payer BC, SELFPAY | PROVIDERS: PCP Family Medicine; Visit Provider Family Medicine | DX: Z13.89 Encounter for screening for other disorder (principal) ==

== ENCOUNTER 2024-10-12 06:58 | Outpatient (REF) | payer BC, SELFPAY ==
[2024-10-12 08:20] LABS: Alanine Aminotransferase 99 U/L (0-40); Albumin Level 4.6 g/dL (3.5-5.0); Alkaline Phosphatase 42 U/L (39-117); Anion Gap 12 (12-20); Aspartate Amino Transferase 52 U/L (5-37); Blood Urea Nitrogen 20 mg/dL (9-16); Calcium 9.1 mg/dL (8.4-10.2); Carbon Dioxide 24 mmol/L (22-29); Chloride 108 mmol/L (96-108); Cholesterol 176 mg/dL (<200); Estimated Glomerular Filt Rate 55; HDL Cholesterol 39 mg/dL (>40); Potassium 4.6 mmol/L (3.3-5.1); Sodium 139 mmol/L (135-145); Total Protein 7.0 g/dL (6.5-8.0); Triglycerides 139 mg/dL (<150)
[2024-10-12 08:33] LABS: Appearance Urine Clear; Glucose Urine UA Negative (Negative); PH 5.5 (5.0-9.0); Specific Gravity - Urine 1.020 (1.005-1.025)
[2024-10-12 09:27] LABS: Microalbum/Creatinine Ratio Ur 3.6 ug/mg cr (<30)
== END 2024-10-12 06:59 | disposition home or self-care (01) ==
LOC: HO.LAB 06:58
PROVIDERS: PCP Family Medicine; Visit Provider Family Medicine
DX: Z00.00 Encounter for general adult medical examination without abnormal findings (principal); I10 Essential (primary) hypertension; E78.5 Hyperlipidemia, unspecified; Z12.5 Encounter for screening for malignant neoplasm of prostate
CPT/HCPCS: 36415; 80053; 80061; 81003; 82043; 82570; 84153; 84443

== ENCOUNTER 2024-10-13 10:21 | Outpatient (AMB) | payer BC, SELFPAY ==
--- NOTE | 2024-10-13 10:33 | MHC.PC.OV ---
Vital Signs 10/13/24 10:39 Height 6 ft 1 in Weight 218 lb 6 oz BMI 28.8 BP 118/82 Blood Pressure Location Rt brachial Position Sitting Respiration 11 L Pulse 57 Pulse Source Pulse Oximeter Temp 97.3 F Temp Source Temporal Artery Scan Pulse Oximetry (%) 98 Oxygen Delivery Method Room Air Intake Visit Reasons: FU hypertension Intake Note: Claude presents in the office today to follow up to his hypertension. Allergies No Known Allergies (No Known Allergies*) Allergy (Verified 10/13/24 10:37) Medication List - Last Reconciled 10/13/24 by Bharat Hermosillo MD fenofibrate nanocrystallized 145 mg PO DAILY 90 days lisinopril 20 mg PO DAILY simvastatin 40 mg PO QPM Tobacco use date assessed: 10/13/24 Dental Screening Dental Screen Date: 10/13/24 Did you have a dental visit in the last 12 months?: Yes Did you have a dental problem in the last 6 months where you did not have access to dental care?: No Was dental information given to patient?: Patient has dentist HPI FU hypertension HPI Details 59 y/o male presents to f/u hypertension. BP today 118/82, 57p. He is on lisinopril 20mg daily. Labs drawn 10/12/24. Reviewed labs with pt. Elevated liver enzymes - AST 52, ALT 99. Triglycerides 139. TC 176. LDL 110. HDL low at 39. He is on simvastatin 40mg. PSA 1.50 ng/mL. Pt notes he has been trying to eat healthier. HPI Comments History of Present Illness Details Documentation assistance for Bharat Hermosillo MD, was provided by Juan David Jeronimo,? Senior Interaction Designer on 10/13/2024 at 11:27 AM AMY. I, Dr. Hermosillo, have read, observed, and verified documentation. ? PFSH Medical History (Updated 10/13/24 @ 11:28 by Juan David Jeronimo) No pertinent past medical history Surgical History History of tooth extraction No pertinent past surgical history Family History (Updated 10/13/24 @ 10:38 by Tami Cano MA) Father Paranoia Depression Parkinson disease Mother Alzheimers disease Sister In good health Other FHx: mental illness Social History (Updated 10/13/24 @ 10:38 by Tami Cano MA) Housing: House Alcohol intake: current Patient Tobacco Use Status: Never used Tobacco e-Cigarette/Vaping Use: Never Used Second Hand Smoke Exposure: No service: No Current occupational status: employed Current occupation: Banker Current occupational exposures/hazards: No Cognitive needs: No Hearing needs: No Vision needs: No Questionnaire PHQ-9 Over the last 2 weeks, how often have you been bothered by any of the following problems? 1. Little interest or pleasure in doing things: not at all 2. Feeling down, depressed, or hopeless: not at all 3. Trouble falling or staying asleep, or sleeping too much: not at all 4. Feeling tired or having little energy: not at all 5. Poor appetite or overeating: not at all 6. Feeling bad about yourself - or that you are a failure or have let yourself or your family down: not at all 7. Trouble concentrating on things, such as reading the newspaper or watching television: not at all 8. Moving or speaking so slowly that other people could have noticed. Or the opposite - being so fidgety or restless that you have been moving around a lot more than usual: not at all 9. Thoughts that you would be better off or of hurting yourself in some way: not at all Total score: 0 Depression Screening Interpretation: Negative Depression Screening Done: Yes 69897 - PHQ-9 Billing: Yes Source: Developed by Drs. Lucho Steel, Geetha Elizalde, Keon Johnson and colleagues, with an educational sravan from [employer]. Thrive Questionnaire Date Thrive assessed: 10/13/24 I am a: Patient What is your living situation today?: I have a steady place to live Within the past 12 months, did the food you bought not last and you didn't have the money to get more?: Never true Within the past 12 months, did you worry whether your food would run out before you got money to buy more?: Never true Do you have trouble paying for medicines?: No Do you have trouble getting transportation to medical appointments?: No Do you have trouble paying your heating and electricity bill?: No Do you have trouble taking care of your child, family member or friend?: No Do you have trouble with day-to-day activities such as bathing, preparing meals, shopping, managing finances, etc.?: No Are you currently unemployed and looking for a job?: No Are you interested in more education?: No Please select the resources that you would like help with: None Currently or been in a relationship where the following occur: No concerns reported THRIVE Score: 0 AUDIT C Alcohol Use Questionnaire (AUDIT-C) 1. How often do you have a drink containing alcohol?: 2-4 times a month 2. How many drinks containing alcohol do you have on a typical day when you are drinking?: 3 or 4 3. How often do you have six or more drinks on one occasion?: Never Total Score: 3 CANDICE-7 AMB Questionnaire CANDICE-7 Date CANDICE - 7 assessed: 10/13/24 Feeling nervous, anxious, or on edge: 1 = Several days Not being able to stop or control worryin = Not at all Worrying too much about different things: 0 = Not at all Trouble relaxin = Not at all Being so restless that it is hard to sit still: 0 = Not at all Becoming easily annoyed or irritable: 0 = Not at all Feeling afraid as if something awful might happen: 0 = Not at all Total CANDICE-7 score (0-4 normal; 5-9 mild; 10-14 moderate; 15-21 severe): 1 Source: Developed by Drs. Lucho Steel, Geetha Elizalde, Keon Johnson and colleagues, with an educational sravan from [employer]. CANDICE-7 Assessment Billing CANDICE-7 Assessment Tool: CANDICE-7 Assessment 40391 Review of Systems Const Denies chills, Denies fatigue, Denies fever(s), Denies headache(s) and Denies weakness ENT Denies dizziness and Denies headache(s) Card Denies dyspnea Resp Denies cough, Denies dyspnea, Denies wheezing and Denies other (shortness of breath) Musc Denies numbness and Denies tingling Neuro Denies dizziness, Denies headache(s), Denies numbness, Denies tingling and Denies weakness Psych Denies anxiety and Denies depression Endo Denies fatigue Aller/Immun Denies wheezing Physical exam (Primary Care) Vital Signs: Last Vital Signs Temp 97.3 F 10/13/24 10:39 Pulse 57 10/13/24 10:39 Resp 11 L 10/13/24 10:39 BP 118/82 10/13/24 10:39 Pulse Ox 98 10/13/24 10:39 Oxygen Delivery Method Room Air 10/13/24 10:39 BMI result Body Mass Index 28.8 Tobacco/Smoking Status: Tobacco use Status Tobacco use date assessed 10/13/24 10/13/24 10:44 Patient Tobacco Use Status Never used Tobacco 10/13/24 10:38 e-Cigarette/Vaping Use Never Used 10/13/24 10:38 PHQ-9: PHQ-9 Score PHQ-9: Total score 0 10/13/24 11:30 Depression Screening Interpretation: Negative Thrive Assessment: Date of Thrive Assessment Date Thrive assessed 10/13/24 10/13/24 10:46 Currently or been in a relationship where the following occur: No concerns reported Const General: well developed; No acute distress Nutritional Appearance: well nourished Orientation/consciousness: patient oriented x3 HENMT Head: Yes normocephalic and Yes atraumatic Eyes General: appearance normal, both eyes and all related structures Pupils: Equal, round and reactive pupils present EOM: EOMs intact bilaterally Resp Effort & Inspection: normal respiratory effort Neuro General: patient oriented x3 and gait normal Cranial nerves: Yes Equal, round and reactive pupils present Psych Affect: normal affect Coding Level of Care Code Est Pt Level 5 (36280) Diagnoses Hypertension I10 Hyperlipidemia E78.5 Elevated liver enzymes R74.8 Screening for prostate cancer Z12.5 Social anxiety disorder F40.10 Additional Codes CANDICE-7 Assessment Billing - CANDICE-7 Assessment Tool: CANDICE-7 Assessment 40482 ([id number]) PHQ-9 - 97768 - PHQ-9 Billing: Yes ([id number]) Assessment & Plan Assessment & Plan (1) Hypertension: Code(s): I10 - Essential (primary) hypertension Category: Medical Plan: Blood pressure is controlled. Goal is less than 140/90 Continue current medication (2) Hyperlipidemia: Code(s): E78.5 - Hyperlipidemia, unspecified Category: Medical Plan: LDL cholesterol is too high. Will switch simvastatin 40 mg daily to atorvastatin 40 mg daily (3) Elevated liver enzymes: Code(s): R74.8 - Abnormal levels of other serum enzymes Category: Medical Plan: History of fatty liver disorder Patient has been gaining weight - working weight loss Recheck ultrasound with elastography Hydrate well Continue working on weight loss (4) Screening for prostate cancer: Code(s): Z12.5 - Encounter for screening for malignant neoplasm of prostate Category: Medical Plan: PSA within range Will continue annual screening (5) Social anxiety disorder: Code(s): F40.10 - Social phobia, unspecified Category: Medical Plan: Trial metoprolol 12.5-25 mg p.r.n. performance anxiety Take 30 minutes to an hour prior to speaking Plan He will return in a couple of months to follow-up elevated liver enzymes and ultrasound of the liver. Will also follow-up weight and blood pressure. Subsequently, will recheck lipids - adjusting atorvastatin today. Orders: Orders US abdomen golden w elastography Today R74.8 - Abnormal levels of other serum enzymes Comprehensive [place]. Panel Fast Today R74.8 - Abnormal levels of other serum enzymes, Z00.00 - Encounter for general adult medical examination without abnormal findings Medications: New atorvastatin (Lipitor) 40 mg PO DAILY 90 tabs 3RF 90 days metoprolol tartrate 1/2 (12.5mg) tab to 1 (25mg) tab orally daily PRN; 30 tabs 0RF Presentation Anxiety 30 days Discontinued simvastatin Discontinued Reason: Doctor's Order 40 mg PO QPM 90 tabs 0RF
[2024-10-13 10:39] VITALS: BP 118/82; PULSE 57; RESP 11; TEMP 36.3; O2SAT 98; BMI 28.8
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
== END 2024-10-13 11:24 | disposition home or self-care (01) ==
LOC: HO.HMCFM 10:22
PROVIDERS: PCP Family Medicine; Visit Provider Family Medicine
DX: I10 Essential (primary) hypertension (principal); E78.5 Hyperlipidemia, unspecified; R74.8 Abnormal levels of other serum enzymes; Z12.5 Encounter for screening for malignant neoplasm of prostate; F40.10 Social phobia, unspecified

== ENCOUNTER → 2024-10-13 10:21 | Outpatient (BNVA) | payer BC, SELFPAY | PROVIDERS: PCP Family Medicine; Visit Provider Family Medicine | DX: I10 Essential (primary) hypertension (principal); E78.5 Hyperlipidemia, unspecified; R74.8 Abnormal levels of other serum enzymes; F40.10 Social phobia, unspecified | CPT/HCPCS: 96127 ==

== ENCOUNTER 2024-12-14 09:49 | Outpatient (REF) | payer BC, SELFPAY ==
--- NOTE | ~2024-12-14 | US_ITS ---
EXAMINATION: US ABDOMEN LIMITED WITH LIVER ELASTOGRAPHY HISTORY: R74.8 - Abnormal levels of other serum enzymes TECHNIQUE: Real-time grayscale ultrasound imaging of the right upper quadrant was performed and images were reviewed. COMPARISON: Comparison is made with the prior examination dated 07/23/2022. FINDINGS: Liver: The right lobe of the liver measures 18.2 cm in size. The left lobe of the liver measures 11.6 cm in size. The liver demonstrates increased echotexture, consistent with steatosis. No focal mass or intrahepatic biliary ductal dilatation is identified. There is normal hepatopedal flow in the portal vein. Ultrasound elastography of the liver was performed with 10 separate measurements of the liver parenchyma with the patient in the supine position. Measurements were obtained approximately 2 cm below Gustavo's capsule and perpendicular to the capsule. The median shear wave velocity is 1.86 m/s (previously 1.40 m/s). The interquartile range/median (IQR/median) is 0.06. Gallbladder and biliary tree: There are multiple tiny gallbladder polyps measuring up to 4 mm in size. The gallbladder is otherwise unremarkable, without evidence of calculi, wall thickening, or pericholecystic fluid. There is no sonographic Tong sign. The common bile duct is normal in caliber measuring 3 mm. Right Kidney: The right kidney measures 11.0 cm in length. The right kidney is unremarkable, without evidence of masses, hydronephrosis, or calculi. Pancreas: The pancreatic head, neck, and body are unremarkable. The pancreatic tail is obscured by bowel gas. Abdominal aorta and inferior vena cava: The visualized portions of the abdominal aorta and inferior vena cava are normal in caliber. There is no free fluid in the right upper quadrant. US/US abdomen golden w elastography IMPRESSION: 1. Hepatomegaly and hepatic steatosis. 2. Gallbladder polyps. The median shear wave velocity in the liver is 1.86 m/s, corresponding to a median liver stiffness of 10.50 kPa. The IQR/median value is 0.06. This is indicative of a quality data set. Findings are indicative of a high elastography value suggestive of compensated advanced chronic liver disease. There has been a significant increase in liver stiffness since the prior study. REFERENCE: Society of Radiologists in Ultrasound Liver Stiffness Thresholds (2020): LIVER STIFFNESS THRESHOLDS: *Shear wave velocity less than 1.3 m/s (Liver Stiffness equal or less than 5 kPa): High probability of being normal. *Shear wave velocity less than 1.7 m/s (Liver Stiffness less than 9 kPa): In the absence of other known clinical signs, rules out compensated advanced chronic liver disease. *Shear wave velocity between 1.7-2.1 m/s (Liver Stiffness 9-13 kPa): Suggestive of compensated advanced chronic liver disease but need further test for confirmation. *Shear wave velocity between 2.1-2.4 m/s (Liver Stiffness 13-17 kPa): Rules in compensated advanced chronic liver disease. *Shear wave velocity greater than 2.4 m/s (Liver Stiffness over 17 kPa): Suggestive of clinically significant portal hypertension. QUALITY OF DATA SET: *IQR/Median value equal or less than 0.15 implies a quality data set. *IQR/Median value over 0.15 implies a poor quality data set. SIGNIFICANT CHANGE FROM PRIOR EXAM: Significant change if liver stiffness measurement is 10% or greater from prior exam. OTHER CONSIDERATIONS: The stage of liver fibrosis may be overestimated in the setting of acute hepatitis, liver inflammation, elevated liver function tests, hepatic vascular congestion, obstructive cholestasis, non-fasting state, and infiltrative diseases such as amyloidosis and lymphoma. In some patients with NAFLD, the liver stiffness thresholds for compensated advanced chronic liver disease may be lower. In causes other than viral hepatitis and NAFLD, liver stiffness thresholds are not well established. Electronically signed by: Lucho Ramos MD 12/14/2024 10:47 AM EDT
== END 2024-12-14 09:50 | disposition home or self-care (01) ==
LOC: HO.US 09:49
PROVIDERS: PCP Family Medicine; Visit Provider Family Medicine
DX: R74.8 Abnormal levels of other serum enzymes (principal)
CPT/HCPCS: 76705; 76981

== ENCOUNTER → 2024-12-14 09:51 | Outpatient (BNV) | payer BC, SELFPAY | PROVIDERS: PCP Family Medicine; Visit Provider Radiology Diagnostic Radiology | DX: K76.0 Fatty (change of) liver, not elsewhere classified (principal); R16.0 Hepatomegaly, not elsewhere classified; K82.4 Cholesterolosis of gallbladder | CPT/HCPCS: 76705 ==

== ENCOUNTER 2025-01-19 08:42 | Outpatient (AMB) | payer BC, SELFPAY ==
--- NOTE | 2025-01-19 08:49 | MHC.PC.OV ---
Vital Signs 01/19/25 08:55 Height 6 ft 1 in Weight 220 lb BMI 29.0 BP 118/68 Blood Pressure Location Rt brachial Position Sitting Respiration 16 Pulse 67 Pulse Source Pulse Oximeter Temp 97.5 F Temp Source Oral Pulse Oximetry (%) 97 Oxygen Delivery Method Room Air Intake Visit Reasons: f/u HTN, chronic conditions Intake Note: patient is scheduled to follow up on htn and chronic conditions Textile Supervisor Required: No Allergies No Known Allergies (No Known Allergies*) Allergy (Verified 01/19/25 08:54) Medication List - Last Reconciled 01/19/25 by Bharat Hermosillo MD atorvastatin (Lipitor) 40 mg PO DAILY 90 days fenofibrate nanocrystallized 145 mg PO DAILY 90 days lisinopril 20 mg PO DAILY metoprolol tartrate 1/2 (12.5mg) tab to 1 (25mg) tab orally daily PRN; 30 days Tobacco use date assessed: 10/13/24 Dental Screening Dental Screen Date: 10/13/24 HPI f/u HTN, chronic conditions HPI Details 59 y/o male presents to f/u HTN, labs. BP today 118/68, 67p. He is on lisinopril 20mg, metoprolol. Liver ultrasound 12/14/24 shows hepatomegaly and hepatic steatosis. Also shows gallbladder polyps. HPI Comments History of Present Illness Details Documentation assistance for Bharat Hermosillo MD, was provided by Juan David Jeronimo, Genetic Supervisor on 01/18/2025 at 9:06 AM AMY. I, Dr. Hermosillo, have read, observed, and verified documentation. [facility], LAT[facility] Medical History (Updated 10/13/24 @ 11:28 by Juan David Jeronimo) No pertinent past medical history Surgical History History of tooth extraction No pertinent past surgical history Family History (Updated 10/13/24 @ 10:38 by Tami Cano MA) Father Paranoia Depression Parkinson disease Mother Alzheimers disease Sister In good health Other FHx: mental illness Social History (Updated 10/13/24 @ 10:38 by Tami Cano MA) Housing: House Alcohol intake: current Patient Tobacco Use Status: Never used Tobacco e-Cigarette/Vaping Use: Never Used Second Hand Smoke Exposure: No service: No Current occupational status: employed Current occupation: Banker Current occupational exposures/hazards: No Cognitive needs: No Hearing needs: No Vision needs: No Questionnaire Thrive Questionnaire Date Thrive assessed: 06/14/24 I am a: Patient What is your living situation today?: I have a steady place to live Within the past 12 months, did the food you bought not last and you didn't have the money to get more?: Never true Within the past 12 months, did you worry whether your food would run out before you got money to buy more?: Never true Do you have trouble paying for medicines?: No Do you have trouble getting transportation to medical appointments?: No Do you have trouble paying your heating and electricity bill?: No Do you have trouble taking care of your child, family member or friend?: No Do you have trouble with day-to-day activities such as bathing, preparing meals, shopping, managing finances, etc.?: No Are you currently unemployed and looking for a job?: No Are you interested in more education?: No Please select the resources that you would like help with: None Currently or been in a relationship where the following occur: No concerns reported THRIVE Score: 0 CANDICE-7 AMB Questionnaire CANDICE-7 Date CANDICE - 7 assessed: 10/13/24 Source: Developed by Drs. Lucho Steel, Geetha Elizalde, Keon Johnson and colleagues, with an educational sravan from [employer]. Review of Systems Const Denies chills, Denies fatigue, Denies fever(s), Denies headache(s) and Denies weakness ENT Denies dizziness and Denies headache(s) Card Denies dyspnea Resp Denies cough, Denies dyspnea, Denies wheezing and Denies other (shortness of breath) Musc Denies numbness and Denies tingling Neuro Denies dizziness, Denies headache(s), Denies numbness, Denies tingling and Denies weakness Psych Denies anxiety and Denies depression Endo Denies fatigue Aller/Immun Denies wheezing Physical exam (Primary Care) Vital Signs: Last Vital Signs Temp 97.5 F 01/19/25 08:55 Pulse 67 01/19/25 08:55 Resp 16 01/19/25 08:55 BP 118/68 01/19/25 08:55 Pulse Ox 97 01/19/25 08:55 Oxygen Delivery Method Room Air 01/19/25 08:55 BMI result Body Mass Index 29.0 Tobacco/Smoking Status: Tobacco use Status Tobacco use date assessed 10/13/24 01/19/25 08:51 Patient Tobacco Use Status Never used Tobacco 01/19/25 08:51 e-Cigarette/Vaping Use Never Used 01/19/25 08:51 Thrive Assessment: Date of Thrive Assessment Date Thrive assessed 06/14/24 01/19/25 08:51 Currently or been in a relationship where the following occur: No concerns reported Const General: well developed; No acute distress Nutritional Appearance: well nourished Orientation/consciousness: patient oriented x3 HENMT Head: Yes normocephalic and Yes atraumatic Eyes General: appearance normal, both eyes and all related structures Pupils: Equal, round and reactive pupils present EOM: EOMs intact bilaterally Resp Effort & Inspection: normal respiratory effort Neuro General: patient oriented x3 and gait normal Cranial nerves: Yes Equal, round and reactive pupils present Psych Affect: normal affect Coding Level of Care Code Est Pt Level 4 (17336) Diagnoses Hypertension I10 Elevated liver enzymes R74.8 Hyperlipidemia E78.5 Social anxiety disorder F40.10 Assessment & Plan Assessment & Plan (1) Hypertension: Code(s): I10 - Essential (primary) hypertension Category: Medical Plan: Blood pressure is well controlled. Goal is less than 140/90 Continue current medication (2) Elevated liver enzymes: Code(s): R74.8 - Abnormal levels of other serum enzymes Category: Medical Plan: Ongoing elevated liver enzymes Recent ultrasound of liver showed hepatomegaly and steatosis. Elastography significantly increased from prior ultrasound in 2022. Now consistent with compensated advanced chronic liver disease. Referred to Gastroenterology Patient says he only drinks a couple of beers at a time and is not using much Tylenol. He will increase hydration and work at weight loss. Encouraged decrease/cessation of alcohol (3) Hyperlipidemia: Code(s): E78.5 - Hyperlipidemia, unspecified Category: Medical Plan: He is taking fenofibrate and also atorvastatin as prescribed. Will recheck lipids at next visit (4) Social anxiety disorder: Code(s): F40.10 - Social phobia, unspecified Category: Medical Plan: Patient notes that social anxiety has gotten better. He has not tried metoprolol yet. He can try this as needed. Orders: Orders Lipid Panel Today E78.5 - Hyperlipidemia, unspecified, Z00.00 - Encounter for general adult medical examination without abnormal findings Microalbumin, Random (w Creat) Today I10 - Essential (primary) hypertension Comprehensive [place]. Panel Fast Today R74.8 - Abnormal levels of other serum enzymes, Z00.00 - Encounter for general adult medical examination without abnormal findings Referrals Gastroenterology Referral R74.8 - Abnormal levels of other serum enzymes
[2025-01-19 08:55] VITALS: BP 118/68; PULSE 67; RESP 16; TEMP 36.4; O2SAT 97; BMI 29.0
--- OUTSIDE RECORDS SUMMARY | 2025-01-19 09:05 | XMS_ITS | Clinical Summary ---
Author Organization [address] [facility] Address [address] [place] [address] Phone Care Team Providers Care Rider Ticket Worker Name Role Phone Bharat Hermosillo MD Primary Care Provider [phone] Allergies No known active allergies Medications fenofibrate [...] Noted Date Diagnosed Date Primary hypertension 09/22/2024 Surgical History Surgery Date Site/Laterality Comments COLONOSCOPY Medical History Medical History Date Comments Hypertension Hyperlipidemia Social History Tobacco Use Types Packs/Day Years Used Date Smoking Tobacco: Never Smokeless Tobacco: Never Tobacco Cessation:Counseling Given: Not Answered Alcohol Use Standard Drinks/Week Comments Yes 0 (1 standard drink = 0.6 oz pur e alcohol) OCC Interpersonal Safety Answer Date Record ed Physical Abuse Unrecognized value 09/22/2024 Verbal Abuse Unrecognized value 09/22/2024 Sex and Gender Information Value Date [...] 07/22/2024 Hypertension/CHF/CAD Annual BMP Blood Test 09/22/2024 COVID-19 Vaccine ( season) 2024 01/01/2024, 12/08/2022, 12/20/2021, Additional history exists Influenza Vaccine (#1) 2024 , 12/08/2022, 12/20/2021, Additional history exists DTaP,Tdap,and Td Vaccines (2 - Td or Tdap) 10/09/2029 10/10/2019 Colorectal Cancer Screening: Colonoscopy 09/22/2034 09/22/2024 RSV Immunization Adult Patients (1 - 1-dose 75+ series) 08/05/2039 HIB Vaccines Aged Out No longer eligi [...] 09/22/2024 1:44 PM EDT Colon cancer screening from Last 3 Months or Most Recently Relevant to Health Maintenance Results * COLONOSCOPY Anesthesia - MAC; [facility] ENDOSCOPY (09/22/2024 1:44 PM EDT) Anatomical Region [...] office PRN. Narrative 09/22/2024 1:[address] [facility] GI Patient Name: Claude Luna Procedure Date: 09/22/2024 1:20 PM Date of [...] retroflexion views. Procedure Code(s): --- Professional --- 66673, Colonoscopy, flexible; with removal of tumor(s), polyp(s), or other lesion(s) by snare technique 29116, 59, Colonoscopy, flexible; with biopsy, single or multiple Diagnosis Code(s): --- Professional --- Z12.11, Encounter for screening for malignant neoplasm of colon D12.0, Benign neoplasm of cecum CPT copyright 2020 [employer]. All rights reserved. The codes documented in this report are preliminary and upon neon sign mechanic review may be revised to meet current compliance requirements. Blanco Bazan MD 09/22/2024 1:46:07 PM This report has been signed electronically.Blanco Bazan MD Number of Addenda: 0 Note Initiated On: 09/22/2024 1:20 PM Scope In: Scope Out: Endoscopy Department at [facility] - [address] [place] [id number] Procedure Note Blanco Bazan MD - 09/22/2024 [facility] GI Patient Name: Claude Luna Procedure Date: 09/22/2024 1:20 PM Date of [...] retroflexion views. Procedure Code(s): --- Professional --- 84852, Colonoscopy, flexible; with removal of tumor(s), polyp(s), or other lesion(s) by snare technique 07402, 59, Colonoscopy, flexible; with biopsy,single or multiple Diagnosis Code(s): --- Professional --- Z12.11, Encounter for screening for malignantneoplasm of colon D12.0, Benign neoplasm of cecum CPT copyright 2020 [employer]. All rights reserved. The codes documented in this report are preliminary and upon neon sign mechanic reviewmay be revised to meet current compliance requirements. Blanco Bazan MD 09/22/2024 1:46:07 PM This report has been signed electronically.Blanco Bazan MD Number of Addenda: 0 Note Initiated On: 09/22/2024 1:20 PM Scope In: Scope Out: Endoscopy Department at [address] [id number] IMPRESSION: - One 3 mm polyp at [...] Blanco Bazan MD GI~PROCEDURE ORDERABLES Final Result from Last 3 Months or Most Recently Relevant to Health Maintenance Insurance Care Teams Rider Ticket Worker Relationship Specialty Start Date End Date Bharat Hermosillo MD PCP - General Family Medicine 09/22/24
== END 2025-01-19 09:15 | disposition home or self-care (01) ==
LOC: HO.HMCFM 08:43
PROVIDERS: PCP Family Medicine; Visit Provider Family Medicine
DX: I10 Essential (primary) hypertension (principal); R74.8 Abnormal levels of other serum enzymes; E78.5 Hyperlipidemia, unspecified; F40.10 Social phobia, unspecified